=== PATIENT | male | born 1990 | race Caucasian/White ===

== ENCOUNTER 2016-12-04 18:30 | Emergency (ER) | payer OTHER ==
[2016-12-04] MEDS ORDERED: ONDANSETRON 4 MG ORAL DISINTEGRATING TAB (S0181) As Ordered ONE (18:42)
[2016-12-04] MEDS ORDERED: KETOROLAC 30 MG/ML VIAL (J1885) As Ordered ONE (19:26)
--- NOTE | 2016-12-04 19:30 | REPUSA ---
CLINICAL HISTORY: Headaches. Fall. TECHNIQUE: Multiple axial brain CT scan sections were obtained from base to vertex without contrast a dministration. COMMENTS: The study shows normal configuration of sella turcica. There are no intra or extra-axial collections. There is no mass effect or midline shift. There is no evidence of hematoma formation. No hydrocephal us is present. No abnormal calcifications are noted. Small retrocerebellar arachnoid cyst is seen. No significant abnormalities are seen either in the posterior fossa or supratentorial compartment. The sinuses and mastoid air cells are patent. IMPRESSION: No evidence of acute intracranial pathology. Thank you for your kind referral of this patient.
--- NOTE | 2016-12-04 19:30 | REPUSA ---
CLINICAL HISTORY: Neck pain. Fall. TECHNIQUE: Multiple axial images were obtained through the cervical spine. Images were also reconstru cted in coronal and sagittal planes. The study was performed without IV contrast. COMMENTS: There is no fracture or spondylolisthesis visualized. The paraspinal soft tissues are unremarkable. T here are no lytic or blastic lesions. Straightening of cervical lordosis is seen, suggesting muscular spasm. There is evidence of minimal m ultilevel disk disease, demonstrated by minimal osteophytosis and endplate sclerosis. No significant disk herniation is noted at any level. Canal and foramina remain patent. IMPRESSION: 1. No fracture or spondylolisthesis. 2. Straightening of cervical lordosis is seen, suggesting muscular spasm. 3. Minimal multilevel spondylosis. Thank you for your kind referral of this patient.
--- NOTE | 2016-12-04 20:10 | REPUSA ---
CT of the thoracic spine without contrast Clinical history: Pain. Trauma. Technique: Multiple axial CT images were obtained through the thoracic spine without administration o f contrast. Coronal and sagittal 3-D reconstructed images were also obtained. Findings: The vertebral bodies are in satisfactory positioning and alignment. No fractures or dislocations are demonstrated. Intervertebral disc spaces are well-maintained. There is no evidence of facet subluxati on. The neural foramen appear grossly patent. The spinal canal demonstrates normal caliber and contou r without evidence of spinal stenosis. The surrounding soft tissues are within normal limits. Impression: No acute traumatic injury
--- NOTE | 2016-12-04 20:10 | REPUSA ---
CT of the lumbar spine without contrast Clinical history: Pain. Trauma. Technique: Multiple axial CT images were obtained through the lumbar spine without administration of contrast. Coronal and sagittal 3-D reconstructed images were also obtained. Findings: The lumbar vertebral bodies are in satisfactory positioning and alignment. No fractures or dislocatio ns are demonstrated. Intervertebral disc spaces are well-maintained. There is no evidence of facet ayala bluxation. The neural foramen appear grossly patent. The spinal canal demonstrates normal caliber and contour without evidence of spinal stenosis. The surrounding soft tissues are within normal limits. Impression: Unremarkable CT examination of the lumbar spine.
--- NOTE | 2016-12-04 20:35 | EDDOCDS ---
Nurse's Notes [facility] Name: Julian Leiva Age: 26 yrs Sex: Male : 1990 Arrival Date: 12/04/2016 Time: 18:30 Bed I8 / 16 Private MD: Diagnosis: Contusion of unspecified part of head;Contusion of back wall of thorax Presentation: 12/04 18:35 Presenting complaint: EMS states: Patient slipped down stairs, hit head. denies b patient losing consciousness, patient reports he does. Patient hurt back a couple weeks ago. Acute neurological deficits are not present. Mechanism of Injury: Fall from standing position. Adult Sepsis Screening: The patient does not have new or worsening altered mentation. Patient's respiratory rate is less than 22. Systolic blood pressure is greater than 100. Patient has a qSOFA score of 0- Negative Sepsis Screen. Suicide/Homicide risk assessment- the patient denies having any suicidal and/or homicidal ideations and does not present with any other emotional, behavioral or mental health complaints. Status: The patient is an active duty client services administrator. Transition of care: patient was not received from another setting of care. 18:35 Acuity: VENUS Level 3 b 18:35 Method Of Arrival: [facility] Triage Assessment: 18:38 General: Appears in no apparent distress, Behavior is appropriate for age, cooperative. b Pain: Location: back of head, posterior chest and back Pain currently is 7 out of 10 on a pain scale. Pt Declines HIV testing. Neurological: Level of Consciousness is awake, alert, obeys commands, Oriented to person, place, time, Stock Room Manager are equal bilaterally. Cardiovascular: Capillary refill < 3 seconds Heart tones present Pulses are all present. Rhythm is regular. Respiratory: Airway is patent Respiratory effort is even, unlabored, Respiratory pattern is regular, symmetrical, Breath sounds are clear bilaterally. GI: Abdomen is non- distended Bowel sounds present X 4 quads. Abd is soft and non tender X 4 quads. Derm: Skin is pink, warm & dry. Musculoskeletal: Range of motion intact in all extremities. Historical: - Allergies: No known drug Allergies; - Home Meds: 1. Vicodin 5-500 mg Oral tab 1 tab every 4-6 hours (Last dose: 12/04/2016 15:30) 2. acidone Unknown as needed (Last dose: 12/04/2016 15:30) - PMHx: back pain; - PSHx: none; - Social history: Smoking status: Patient states was never smoker of tobacco. No barriers to communication noted, The patient speaks fluent Portuguese, Speaks appropriately for age. - Family history: No immediate family members are acutely ill. - : The pt / caregiver states he / she is not on anticoagulants. Home medication list is obtained from the patient. - Exposure Risk Screening:: None identified. Screenin:34 Screening information is obtained from the patient. Fall risk: No risks identified. nn1 Assistance ADL's: requires no assistance with activities of daily living. Abuse/DV Screen: The patient / caregiver reports he/she is: not in a situation that causes fear, pain or injury. Nutritional screening: No deficits noted. Advance Directives: There is no active DNR order. home support is adequate. Assessment: 19:12 General: Appears uncomfortable, Behavior is appropriate for age, cooperative. General: nn1 CCollar removed by provider. . Pain: Location: left mid back and right mid back. Neurological: Level of Consciousness is awake, alert, obeys commands, Oriented to person, place, time, Moves all extremities. Facial symmetry appears normal. Cardiovascular: Capillary refill < 3 seconds. Respiratory: Airway is patent Respiratory effort is even, unlabored, Respiratory pattern is regular, symmetrical. GI: Reports nausea. Derm: Skin is pink, warm & dry. Musculoskeletal: Circulation, motion, and sensation intact Capillary refill < 3 seconds Range of motion intact in all extremities. 20:33 General: Appears in no apparent distress, uncomfortable, Behavior is appropriate for nn1 age, cooperative. Pain: Location: back and back of head Pain currently is 7 out of 10 on a pain scale. Neurological: No deficits noted. Respiratory: Airway is patent Respiratory effort is even, unlabored, Respiratory pattern is regular, symmetrical. Derm: Skin is pink, warm & dry. Vital Signs: 18:36 BP 135 / 85; Pulse 75; Resp 20; Temp 99.5; Pulse Ox 99% ; Weight 81.65 kg; Height 5 ft. jlf 8 in. (172.72 cm); Pain 8/10; 20:35 BP 134 / 79; Pulse 78; Resp 18; Temp 98.7; Pulse Ox 97% on R/A; Pain 7/10; nn1 18:36 Body Mass Index 27.37 (81.65 kg, 172.72 cm) [facility] Vitals: 18:38 Log In Time N/A - ambulance arrival[facility] ED Course: 18:31 Patient visited by Stew Gil PCA. jrd 18:31 Patient moved to Waiting jrd 18:31 Patient moved to I8 / 16 jrd 18:36 Patient visited by Eric Stevens PCA. jlf 18:36 Patient visited by Eric Stevens PCA. jlf 18:36 Triage Initiated jm 18:46 Homero Morales DO is Attending Physician. cs11 18:46 Patient visited by Homero Morales DO. cs11 19:33 Patient visited by Tiffanie Kahn RN. nn1 19:57 [facility] Payment Agreement was scanned into [employer] and attached to record. gjb 20:00 CT Spine,Cervical W/o Contrast Returned. EDMS 20:01 CT Head Without Contrast Returned. EDMS 20:24 [facility] cs11 20:35 The patient / caregiver is instructed regarding the plan of care and ED course. nn1 20:35 No IV's were initiated during this patient's visit. No procedures done that require nn1 assistance. Administered Medications: 18:44 Drug: Ondansetron 4 mg [ondansetron HCl 4 mg tablet (1 tabs)] Route: PO; jmb 19:33 Drug: ketorolac 60 mg [ketorolac 30 mg/mL (1 mL) injection solution (2 mL)] Route: IM; nn1 Site: left gluteus; Order Results: Radiology Order: CT Head Without Contrast Test: CT Head Without Contrast REASON FOR EXAMINATION: fall, brock; ; CLINICAL HISTORY: Headaches. Fall.; TECHNIQUE: Multiple axial brain CT scan sections were obtained from base to vertex without contrast a; dministration.; COMMENTS:; The study shows normal configuration of sella turcica. There are no intra or extra-axial collections.; There is no mass effect or midline shift. There is no evidence of hematoma formation. No hydrocephal; us is present. No abnormal calcifications are noted. Small retrocerebellar arachnoid cyst is seen.; No significant abnormalities are seen either in the posterior fossa or supratentorial compartment.; The sinuses and mastoid air cells are patent.; IMPRESSION:; No evidence of acute intracranial pathology.; Thank you for your kind referral of this patient.; ; Radiology Order: CT Spine,Cervical W/o Contrast Test: CT Spine,Cervical W/o Contrast REASON FOR EXAMINATION: Trauma; ; CLINICAL HISTORY: Neck pain. Fall.; TECHNIQUE: Multiple axial images were obtained through the cervical spine. Images were also reconstru; cted in coronal and sagittal planes. The study was performed without IV contrast.; COMMENTS:; There is no fracture or spondylolisthesis visualized. The paraspinal soft tissues are unremarkable. T; here are no lytic or blastic lesions.; Straightening of cervical lordosis is seen, suggesting muscular spasm. There is evidence of minimal m; ultilevel disk disease, demonstrated by minimal osteophytosis and endplate sclerosis.; No significant disk herniation is noted at any level. Canal and foramina remain patent.; IMPRESSION:; 1. No fracture or spondylolisthesis.; 2. Straightening of cervical lordosis is seen, suggesting muscular spasm.; 3. Minimal multilevel spondylosis.; Thank you for your kind referral of this patient.; ; Outcome: 20:25 Discharge ordered by Provider. cs11 20:34 Discharge Assessment: Patient awake, alert and oriented x 3. No cognitive and/or nn1 functional deficits noted. Patient verbalized understanding of disposition instructions. patient administered narcotics - no. The following High Risk Discharge criteria are identified: None. Discharged to home ambulatory. Condition: stable. CT Study completed. Property :Personal belongings accompany Pt. 20:35 Patient left the ED. nn1 Signatures: Dispatcher [employer] EDMS Homero Morales DO DO cs11 Jean Pierre WilliamRN RN Eric Mcclure, WATCH LEADER WATCH LEADER Stew Stone, WATCH LEADER WATCH LEADER Tiffanie Cormier RN RN nn1 Jaz Trujillo MTDD
--- NOTE | 2016-12-04 20:35 | EDDOCDS ---
Physician Documentation [facility] Name: Julian Leiva Age: 26 yrs Sex: Male : 1990 Arrival Date: 12/04/2016 Time: 18:30 Bed I8 / 16 Private MD: Disposition: 12/04/16 20:25 Discharged to Home/Self Care. Impression: Contusion of unspecified part of head, Contusion of back wall of thorax. - Condition is Stable. - Medication Reconciliation, Local Pharmacy Hours form. - Follow up: Veda Fish [facility]; When: Call to arrange an appointment; Reason: Recheck today's complaints. - Problem is new. - Symptoms have improved. Historical: - Allergies: No known drug Allergies; - Home Meds: 1. Vicodin 5-500 mg Oral tab 1 tab every 4-6 hours (Last dose: 12/04/2016 15:30) 2. acidone Unknown as needed (Last dose: 12/04/2016 15:30) - PMHx: back pain; - PSHx: none; - Social history: Smoking status: Patient states was never smoker of tobacco. No barriers to communication noted, The patient speaks fluent Armenian, Speaks appropriately for age. - Family history: No immediate family members are acutely ill. - : The pt / caregiver states he / she is not on anticoagulants. Home medication list is obtained from the patient. - Exposure Risk Screening:: None identified. Vital Signs: 12/04 18:36 BP 135 / 85; Pulse 75; Resp 20; Temp 99.5; Pulse Ox 99% ; Weight 81.65 kg / 180.01 lbs; jlf Height 5 ft. 8 in. (172.72 cm); Pain 8/10; 20:35 BP 134 / 79; Pulse 78; Resp 18; Temp 98.7; Pulse Ox 97% on R/A; Pain 7/10; nn1 18:36 Body Mass Index 27.37 (81.65 kg, 172.72 cm) jlf MDM: 18:42 Ondansetron 4 mg PO once ordered. fg 18:42 CT Head Without Contrast Ordered. EDMS 18:49 CT Spine,Cervical W/o Contrast Ordered. EDMS 19:08 CT Spine, Lumbar W/o Contrast Ordered. EDMS 19:08 CT Spine,Thoracic W/o Contrast Ordered. EDMS 19:23 ketorolac 60 mg IM once ordered. cs11 19:57 [facility] Payment Agreement was scanned into [employer] and attached to record. susan :57 Financial registration complete. susan Administered Medications: 18:44 Drug: Ondansetron 4 mg [ondansetron HCl 4 mg tablet (1 tabs)] Route: PO; jmb 19:33 Drug: ketorolac 60 mg [ketorolac 30 mg/mL (1 mL) injection solution (2 mL)] Route: IM; nn1 Site: left gluteus; Signatures: Dispatcher [employer] EDMS Homero Morales DO DO cs11 Jean Pierre William RN RN Tiffanie Pineda RN RN nn1 Debo Justin MD MD fg Beck, Gabriela gjb The chart was reviewed and I authenticate all verbal orders and agree with the evaluation and treatment provided.Attachments: :57 [facility] Payment Agreement samir MTDD
--- NOTE | 2016-12-06 21:37 | EDDOCDS ---
Physician Documentation [facility] Name: Julian Leiva Age: 26 yrs Sex: Male : 1990 Arrival Date: 12/04/2016 Time: 18:30 Bed I8 / 16 Private MD: Disposition: 12/04/16 20:25 Discharged to Home/Self Care. Impression: Contusion of unspecified part of head, Contusion of back wall of thorax. - Condition is Stable. - Medication Reconciliation, Local Pharmacy Hours form. - Follow up: Veda Fish [facility]; When: Call to arrange an appointment; Reason: Recheck today's complaints. - Problem is new. - Symptoms have improved. Historical: - Allergies: No known drug Allergies; - Home Meds: 1. Vicodin 5-500 mg Oral tab 1 tab every 4-6 hours (Last dose: 12/04/2016 15:30) 2. acidone Unknown as needed (Last dose: 12/04/2016 15:30) - PMHx: back pain; - PSHx: none; - Social history: Smoking status: Patient states was never smoker of tobacco. No barriers to communication noted, The patient speaks fluent Amharic, Speaks appropriately for age. - Family history: No immediate family members are acutely ill. - : The pt / caregiver states he / she is not on anticoagulants. Home medication list is obtained from the patient. - Exposure Risk Screening:: None identified. Vital Signs: 12/04 18:36 BP 135 / 85; Pulse 75; Resp 20; Temp 99.5; Pulse Ox 99% ; Weight 81.65 kg / 180.01 lbs; jlf Height 5 ft. 8 in. (172.72 cm); Pain 8/10; 20:35 BP 134 / 79; Pulse 78; Resp 18; Temp 98.7; Pulse Ox 97% on R/A; Pain 7/10; nn1 18:36 Body Mass Index 27.37 (81.65 kg, 172.72 cm) jlf MDM: 18:42 Ondansetron 4 mg PO once ordered. fg 18:42 CT Head Without Contrast Ordered. EDMS 18:49 CT Spine,Cervical W/o Contrast Ordered. EDMS 19:08 CT Spine, Lumbar W/o Contrast Ordered. EDMS 19:08 CT Spine,Thoracic W/o Contrast Ordered. EDMS 19:23 ketorolac 60 mg IM once ordered. cs11 19:57 [facility] [place] Agreement was scanned into [employer] and attached to record. gjb :57 Financial registration complete. gjb 12/05 07:53 T-Sheet-- Draft Copy was scanned into [employer] and attached to record. gb 12:44 Radiology Report was scanned into [employer] and attached to record. gb 12/06 12:47 PCR was scanned into [employer] and attached to record. gb Administered Medications: 12/04 18:44 Drug: Ondansetron 4 mg [ondansetron HCl 4 mg tablet (1 tabs)] Route: PO; jmb 19:33 Drug: ketorolac 60 mg [ketorolac 30 mg/mL (1 mL) injection solution (2 mL)] Route: IM; nn1 Site: left gluteus; Signatures: Dispatcher [employer] EDMS Lauren Pierce, Reg Reg gb Homero Morales, DO DO cs11 Jean Pierre William RN RN Tiffanie Pineda RN RN nn1 Debo Justin MD MD fg Beck, Gabriela gjb The chart was reviewed and I authenticate all verbal orders and agree with the evaluation and treatment provided.Attachments: :57 [facility] Payment Agreement page hospital 12/05 07:53 T-Sheet-- Draft Copy gb Chart Complete MTDD
--- NOTE | 2016-12-06 21:37 | EDDOCDS ---
Nurse's Notes [facility] Name: Julian Leiva Age: 26 yrs Sex: Male : 1990 Arrival Date: 12/04/2016 Time: 18:30 Bed I8 / 16 Private MD: Diagnosis: Contusion of unspecified part of head;Contusion of back wall of thorax Presentation: 12/04 18:35 Presenting complaint: EMS states: Patient slipped down stairs, hit head. denies b patient losing consciousness, patient reports he does. Patient hurt back a couple weeks ago. Acute neurological deficits are not present. Mechanism of Injury: Fall from standing position. Adult Sepsis Screening: The patient does not have new or worsening altered mentation. Patient's respiratory rate is less than 22. Systolic blood pressure is greater than 100. Patient has a qSOFA score of 0- Negative Sepsis Screen. Suicide/Homicide risk assessment- the patient denies having any suicidal and/or homicidal ideations and does not present with any other emotional, behavioral or mental health complaints. Status: The patient is an active duty visitor services representative. Transition of care: patient was not received from another setting of care. 18:35 Acuity: VENUS Level 3 b 18:35 Method Of Arrival: Ambulance [facility] Triage Assessment: 18:38 General: Appears in no apparent distress, Behavior is appropriate for age, cooperative. b Pain: Location: back of head, posterior chest and back Pain currently is 7 out of 10 on a pain scale. Pt Declines HIV testing. Neurological: Level of Consciousness is awake, alert, obeys commands, Oriented to person, place, time, Industrial Workers are equal bilaterally. Cardiovascular: Capillary refill < 3 seconds Heart tones present Pulses are all present. Rhythm is regular. Respiratory: Airway is patent Respiratory effort is even, unlabored, Respiratory pattern is regular, symmetrical, Breath sounds are clear bilaterally. GI: Abdomen is non- distended Bowel sounds present X 4 quads. Abd is soft and non tender X 4 quads. Derm: Skin is pink, warm & dry. Musculoskeletal: Range of motion intact in all extremities. Historical: - Allergies: No known drug Allergies; - Home Meds: 1. Vicodin 5-500 mg Oral tab 1 tab every 4-6 hours (Last dose: 12/04/2016 15:30) 2. acidone Unknown as needed (Last dose: 12/04/2016 15:30) - PMHx: back pain; - PSHx: none; - Social history: Smoking status: Patient states was never smoker of tobacco. No barriers to communication noted, The patient speaks fluent Tongan, Speaks appropriately for age. - Family history: No immediate family members are acutely ill. - : The pt / caregiver states he / she is not on anticoagulants. Home medication list is obtained from the patient. - Exposure Risk Screening:: None identified. Screenin:34 Screening information is obtained from the patient. Fall risk: No risks identified. nn1 Assistance ADL's: requires no assistance with activities of daily living. Abuse/DV Screen: The patient / caregiver reports he/she is: not in a situation that causes fear, pain or injury. Nutritional screening: No deficits noted. Advance Directives: There is no active DNR order. home support is adequate. Assessment: 19:12 General: Appears uncomfortable, Behavior is appropriate for age, cooperative. General: nn1 CCollar removed by provider. . Pain: Location: left mid back and right mid back. Neurological: Level of Consciousness is awake, alert, obeys commands, Oriented to person, place, time, Moves all extremities. Facial symmetry appears normal. Cardiovascular: Capillary refill < 3 seconds. Respiratory: Airway is patent Respiratory effort is even, unlabored, Respiratory pattern is regular, symmetrical. GI: Reports nausea. Derm: Skin is pink, warm & dry. Musculoskeletal: Circulation, motion, and sensation intact Capillary refill < 3 seconds Range of motion intact in all extremities. 20:33 General: Appears in no apparent distress, uncomfortable, Behavior is appropriate for nn1 age, cooperative. Pain: Location: back and back of head Pain currently is 7 out of 10 on a pain scale. Neurological: No deficits noted. Respiratory: Airway is patent Respiratory effort is even, unlabored, Respiratory pattern is regular, symmetrical. Derm: Skin is pink, warm & dry. Vital Signs: 18:36 BP 135 / 85; Pulse 75; Resp 20; Temp 99.5; Pulse Ox 99% ; Weight 81.65 kg; Height 5 ft. jlf 8 in. (172.72 cm); Pain 8/10; 20:35 BP 134 / 79; Pulse 78; Resp 18; Temp 98.7; Pulse Ox 97% on R/A; Pain 7/10; nn1 18:36 Body Mass Index 27.37 (81.65 kg, 172.72 cm) [facility] Vitals: 18:38 Log In Time N/A - ambulance arrival. [facility] ED Course: 18:31 Patient visited by Stew Gil PCA. jrd 18:31 Patient moved to Waiting jrd 18:31 Patient moved to I8 / 16 jrd 18:36 Patient visited by Eric Stevens PCA. jlf 18:36 Patient visited by Eric Stevens PCA. jlf 18:36 Triage Initiated [facility] 18:46 Homero Morales DO is Attending Physician. cs11 18:46 Patient visited by Homero Morales DO. cs11 19:33 Patient visited by Tiffanie Kahn RN. nn1 19:57 [facility] Payment Agreement was scanned into [employer] and attached to record. gjb 20:00 CT Spine,Cervical W/o Contrast Returned. EDMS 20:01 CT Head Without Contrast Returned. EDMS 20:24 Veda Fish [facility] is Referral Physician. cs11 20:35 The patient / caregiver is instructed regarding the plan of care and ED course. nn1 20:35 No IV's were initiated during this patient's visit. No procedures done that require nn1 assistance. 20:56 CT Spine,Thoracic W/o Contrast Returned. EDMS 20:56 CT Spine, Lumbar W/o Contrast Returned. EDMS 01 07:53 T-Sheet-- Draft Copy was scanned into [employer] and attached to record. gb 12:44 Radiology Report was scanned into [employer] and attached to record. gb 12/06 12:47 PCR was scanned into [employer] and attached to record. gb Administered Medications: 12/04 18:44 Drug: Ondansetron 4 mg [ondansetron HCl 4 mg tablet (1 tabs)] Route: PO; [facility] 19:33 Drug: ketorolac 60 mg [ketorolac 30 mg/mL (1 mL) injection solution (2 mL)] Route: IM; nn1 Site: left gluteus; Order Results: Radiology Order: CT Head Without Contrast Test: CT Head Without Contrast REASON FOR EXAMINATION: fall, brock; ; CLINICAL HISTORY: Headaches. Fall.; TECHNIQUE: Multiple axial brain CT scan sections were obtained from base to vertex without contrast a; dministration.; COMMENTS:; The study shows normal configuration of sella turcica. There are no intra or extra-axial collections.; There is no mass effect or midline shift. There is no evidence of hematoma formation. No hydrocephal; us is present. No abnormal calcifications are noted. Small retrocerebellar arachnoid cyst is seen.; No significant abnormalities are seen either in the posterior fossa or supratentorial compartment.; The sinuses and mastoid air cells are patent.; IMPRESSION:; No evidence of acute intracranial pathology.; Thank you for your kind referral of this patient.; ; Radiology Order: CT Spine,Cervical W/o Contrast Test: CT Spine,Cervical W/o Contrast REASON FOR EXAMINATION: Trauma; ; CLINICAL HISTORY: Neck pain. Fall.; TECHNIQUE: Multiple axial images were obtained through the cervical spine. Images were also reconstru; cted in coronal and sagittal planes. The study was performed without IV contrast.; COMMENTS:; There is no fracture or spondylolisthesis visualized. The paraspinal soft tissues are unremarkable. T; here are no lytic or blastic lesions.; Straightening of cervical lordosis is seen, suggesting muscular spasm. There is evidence of minimal m; ultilevel disk disease, demonstrated by minimal osteophytosis and endplate sclerosis.; No significant disk herniation is noted at any level. Canal and foramina remain patent.; IMPRESSION:; 1. No fracture or spondylolisthesis.; 2. Straightening of cervical lordosis is seen, suggesting muscular spasm.; 3. Minimal multilevel spondylosis.; Thank you for your kind referral of this patient.; ; Radiology Order: CT Spine, Lumbar W/o Contrast Test: CT Spine, Lumbar W/o Contrast REASON FOR EXAMINATION: Trauma; ; CT of the lumbar spine without contrast; Clinical history: Pain. Trauma.; Technique: Multiple axial CT images were obtained through the lumbar spine without administration of; contrast. Coronal and sagittal 3-D reconstructed images were also obtained.; Findings:; The lumbar vertebral bodies are in satisfactory positioning and alignment. No fractures or dislocatio; ns are demonstrated. Intervertebral disc spaces are well-maintained. There is no evidence of facet ayala; bluxation. The neural foramen appear grossly patent. The spinal canal demonstrates normal caliber and; contour without evidence of spinal stenosis. The surrounding soft tissues are within normal limits.; Impression: Unremarkable CT examination of the lumbar spine.; ; Radiology Order: CT Spine,Thoracic W/o Contrast Test: CT Spine,Thoracic W/o Contrast REASON FOR EXAMINATION: Trauma; ; CT of the thoracic spine without contrast; Clinical history: Pain. Trauma.; Technique: Multiple axial CT images were obtained through the thoracic spine without administration o; f contrast. Coronal and sagittal 3-D reconstructed images were also obtained.; Findings:; The vertebral bodies are in satisfactory positioning and alignment. No fractures or dislocations are; demonstrated. Intervertebral disc spaces are well-maintained. There is no evidence of facet subluxati; on. The neural foramen appear grossly patent. The spinal canal demonstrates normal caliber and contou; r without evidence of spinal stenosis. The surrounding soft tissues are within normal limits.; Impression: No acute traumatic injury; ; Outcome: 20:25 Discharge ordered by Provider. cs11 20:34 Discharge Assessment: Patient awake, alert and oriented x 3. No cognitive and/or nn1 functional deficits noted. Patient verbalized understanding of disposition instructions. patient administered narcotics - no. The following High Risk Discharge criteria are identified: None. Discharged to home ambulatory. Condition: stable. CT Study completed. Property :Personal belongings accompany Pt. 20:35 Patient left the ED. nn1 Signatures: Dispatcher [employer] EDMS Lauren Pierce, Reg Reg Homero Castro, DO cs11 Jean Pierre William,RN RN Eric Mcclure, GUIDE RAIL CLEANER GUIDE RAIL CLEANER Stew Stone, GUIDE RAIL CLEANER GUIDE RAIL CLEANER Tiffanie Cormier,RN RN nn1 Jaz Trujillo Chart Complete MTDD
--- NOTE | 2016-12-06 21:37 | EDDOCDS ---
Physician Documentation [facility] Name: Julian Leiva Age: 26 yrs Sex: Male : 1990 Arrival Date: 12/04/2016 Time: 18:30 Bed I8 / 16 Private MD: Disposition: 12/04/16 20:25 Discharged to Home/Self Care. Impression: Contusion of unspecified part of head, Contusion of back wall of thorax. - Condition is Stable. - Medication Reconciliation, Local Pharmacy Hours form. - Follow up: Veda Fish [facility]; When: Call to arrange an appointment; Reason: Recheck today's complaints. - Problem is new. - Symptoms have improved. Historical: - Allergies: No known drug Allergies; - Home Meds: 1. Vicodin 5-500 mg Oral tab 1 tab every 4-6 hours (Last dose: 12/04/2016 15:30) 2. acidone Unknown as needed (Last dose: 12/04/2016 15:30) - PMHx: back pain; - PSHx: none; - Social history: Smoking status: Patient states was never smoker of tobacco. No barriers to communication noted, The patient speaks fluent Moh[place], Speaks appropriately for age. - Family history: No immediate family members are acutely ill. - : The pt / caregiver states he / she is not on anticoagulants. Home medication list is obtained from the patient. - Exposure Risk Screening:: None identified. Vital Signs: 12/04 18:36 BP 135 / 85; Pulse 75; Resp 20; Temp 99.5; Pulse Ox 99% ; Weight 81.65 kg / 180.01 lbs; jlf Height 5 ft. 8 in. (172.72 cm); Pain 8/10; 20:35 BP 134 / 79; Pulse 78; Resp 18; Temp 98.7; Pulse Ox 97% on R/A; Pain 7/10; nn1 18:36 Body Mass Index 27.37 (81.65 kg, 172.72 cm) jlf MDM: 18:42 Ondansetron 4 mg PO once ordered. fg 18:42 CT Head Without Contrast Ordered. EDMS 18:49 CT Spine,Cervical W/o Contrast Ordered. EDMS 19:08 CT Spine, Lumbar W/o Contrast Ordered. EDMS 19:08 CT Spine,Thoracic W/o Contrast Ordered. EDMS 19:23 ketorolac 60 mg IM once ordered. cs11 19:57 [facility] [place] Payment Agreement was scanned into [employer] and attached to record. gjb :57 Financial registration complete. gjb 12/05 07:53 T-Sheet-- Draft Copy was scanned into [employer] and attached to record. gb 12:44 Radiology Report was scanned into [employer] and attached to record. gb 12/06 12:47 PCR was scanned into [employer] and attached to record. gb Administered Medications: 12/04 18:44 Drug: Ondansetron 4 mg [ondansetron HCl 4 mg tablet (1 tabs)] Route: PO; jmb 19:33 Drug: ketorolac 60 mg [ketorolac 30 mg/mL (1 mL) injection solution (2 mL)] Route: IM; nn1 Site: left gluteus; Signatures: Dispatcher [employer] EDMS Lauren Pierce, Reg Reg gb Homero Morales, DO DO cs11 Jean Pierre William RN RN Tiffanie Pineda RN RN nn1 Debo Justin MD MD fg Beck, Gabriela gjb The chart was reviewed and I authenticate all verbal orders and agree with the evaluation and treatment provided.Attachments: :57 [facility] Payment Agreement [facility] 12/05 07:53 T-Sheet-- Draft Copy gb Chart Complete MTDD
== END 2016-12-04 20:35 | disposition home or self-care (01) ==
LOC: M ED 18:30
DX: S00.93XA Contusion of unspecified part of head, initial encounter (principal); S30.0XXA Contusion of lower back and pelvis, initial encounter; W10.9XXA Fall (on) (from) unspecified stairs and steps, initial encounter; Y92.019 Unspecified place in single-family (private) house as the place of occurrence of the external cause; Y93.89 Activity, other specified; Y99.8 Other external cause status
CPT/HCPCS: 70450; 72125; 72128; 72131; 96372; 99284; J1885